=== PATIENT | male | born 1975 | race Caucasian/White ===

== ENCOUNTER → 2017-10-11 | Outpatient (CLI) | payer BC ==
--- NOTE | 2017-10-12 09:13 | XR ---
EXAM TYPE: LUMBAR SPINE X RAY SERIES COMPARISON: NONE HISTORY: Pain TECHNIQUE: 4 views are submitted. FINDINGS: Alignment is anatomic. The pedicles are intact. The transverse processes are intact. There is no s pondylolysis or spondylolisthesis. Schmorl's nodes involving L2, T11 and T12. Multilevel moderate to severe degenerative disc disease and facet arthropathy. There is slight wedging of the T12 vertebral body. IMPRESSION: 1. Multilevel moderate to severe degenerative disc disease with minimal wedging of the T12 vertebral body for which correlation with MRI is recommended..
== END | disposition home or self-care (01) ==
LOC: RADXRYALE 15:36
PROVIDERS: ATTEND Physician Assistant Medical
DX: M51.36 Other intervertebral disc degeneration, lumbar region (principal)
CPT/HCPCS: 72100

== ENCOUNTER → 2020-08-24 | Outpatient (CLI) | payer OTHER ==
--- NOTE | 2020-08-25 03:54 | CT ---
EXAMINATION TYPE: CT abdomen pelvis w con DATE OF EXAM: 08/24/2020 COMPARISON: None HISTORY: RUQ pain CT DLP: 0.6 mGycm Automated exposure control for dose reduction was used. CONTRAST: Performed with IV Contrast, patient injected with 100 mL of Isovue 300. There is oral contrast. There is mild subsegmental atelectasis left lung base. There is no pericardial effusion. Heart size i s normal. Liver and spleen and pancreas appear intact. The bile ducts are not dilated. There is apparent gallbl adder present which is somewhat contracted and contains 3 hypoattenuation material. This could be gal lstones. The stomach is intact. There is no adrenal mass. Kidneys show satisfactory contrast opacification. Th ere is no hydronephrosis. Delayed images show normal renal excretion. The appendix is medial and appe ars normal. Bladder distends smoothly. There is no inguinal hernia. There is no free fluid in the pel vis. There are a few sigmoid diverticula. There is no sign of diverticulitis. There is no ascites or free air. There is no bowel obstruction. Lumbar vertebra have normal alignment. The posterior elements are intact. There is no compression fra cture. The bony pelvis is intact. IMPRESSION: There is minimal sigmoid diverticulosis without diverticulitis. Normal appendix. High attenuation in the gallbladder which could BE a contracted gallbladder filled with stones. No di lated ducts. Gallbladder abnormality could be confirmed with ultrasound if clinically indicated.
== END | disposition home or self-care (01) ==
LOC: RADCTMAIN 17:04
PROVIDERS: ATTEND Family Medicine
DX: K57.30 Diverticulosis of large intestine without perforation or abscess without bleeding (principal); R10.32 Left lower quadrant pain
CPT/HCPCS: 74177; Q9967

== ENCOUNTER 2020-08-26 15:50 | Observation (INO) | payer OTHER ==
[2020-08-26] MEDS ORDERED: SODIUM CHLORIDE 0.9% 1,000 ML IV STA ×2 (16:37)
[2020-08-26] MEDS ORDERED: HYDROmorphone 0.5 MG/0.5 ML SYRINGE IVP STA (16:37)
[2020-08-26] MEDS ORDERED: PANTOPRAZOLE 40 MG/10 ML VIAL IVP STA (16:37)
[2020-08-26] MEDS ORDERED: ONDANSETRON 4 MG/2 ML VIAL IVP STA (16:37)
[2020-08-26 16:58] LABS: Basophils % (A) 0 %; Eosinophils # (A) 0.2 k/uL (0-0.7); Eosinophils % (A) 3 %; HCT 44.6 % (39.0-53.0); Lymphocytes # (A) 1.8 k/uL (1.0-4.8); Lymphocytes % (A) 22 %; MCH 31.2 pg (25.0-35.0); MCHC 33.6 g/dL (31.0-37.0); MCV 92.7 fL (80.0-100.0); Mean Platelet Volume 7.4; Monocytes # (A) 0.4 k/uL (0-1.0); Monocytes % (A) 4 %; Neutrophils # (A) 5.6 k/uL (1.3-7.7); Neutrophils % (A) 68 %; Platelet Count 175 k/uL (150-450); RDW 12.3 % (11.5-15.5); WBC 8.2 k/uL (3.8-10.6)
[2020-08-26 17:06] LABS: ALT 35 U/L (4-49); AST 37 U/L (17-59); African American GFR (CKD) >90 (>60 ml/min/1.73 sqM); Albumin 4.4 g/dL (3.5-5.0); Alkaline Phosphatase 51 U/L (38-126); Amylase 65 U/L (30-110); Anion Gap 6 mmol/L; Blood Urea Nitrogen 19 mg/dL (9-20); Calcium 9.4 mg/dL (8.4-10.2); Carbon Dioxide 25 mmol/L (22-30); Chloride 105 mmol/L (98-107); Glucose 83 mg/dL (74-99); Lipase 87 U/L (23-300); Non-African American GFR(CKD) >90 (>60 ml/min/1.73 sqM); Sodium 136 mmol/L (137-145); Total Bilirubin 0.4 mg/dL (0.2-1.3); Total Protein 7.3 g/dL (6.3-8.2)
[2020-08-26 17:12] LABS: Partial Thromboplastin Time 25.7 sec (22.0-30.0)
--- NOTE | 2020-08-26 17:14 | ED ---
Abdominal Pain HPI - General Chief Complaint: Abdominal Pain Stated Complaint: Abd Pain Time Seen by Provider: 08/26/20 16:18 Source: patient, RN notes reviewed, old records reviewed Mode of arrival: ambulatory Limitations: no limitations - History of Present Illness Initial Comments: Residual male presents to the ER today for evaluation for concerns for right upper quadrant abdominal pain has been intermittent for the past few weeks, specifically worse after eating dinner at night. Patient was seen by PCP and had an outpatient CAT scan he does not know the results. This was done a week ago. Patient denies any fever. He complains of some nausea. Denies any significant change in stools. He does have a history of a VSD repair and a pacemaker. Patient reports he's had hernia surgeries in the past. - Related Data Home Medications Medication Instructions Recorded Confirmed Adk 1 tab PO DAILY 08/26/20 08/26/20 Anastrozole [Arimidex] 1 mg PO MOTH 08/26/20 08/26/20 Dim 1 tab PO DAILY 08/26/20 08/26/20 HYDROcodone/APAP 10-325MG [[place] 1 tab PO Q8H PRN 08/26/20 08/26/20 10-325] traMADol HCL 50 mg PO BID PRN 08/26/20 08/26/20 Allergies Allergy/AdvReac Type Severity Reaction Status Date / Time No Known Allergies Allergy Verified 08/26/20 17:29 Review of Systems ROS Statement: Those systems with pertinent positive or pertinent negative responses have been documented in the HPI. ROS Other: All systems not noted in ROS Statement are negative. Past Medical History Past Medical History: Coronary Artery Disease (CAD) History of Any Multi-Drug Resistant Organisms: None Reported Past Surgical History: Pacemaker Additional Past Surgical History / Comment(s): VST repair Past Psychological History: No Psychological Hx Reported Smoking Status: Never smoker Past Alcohol Use History: None Reported Past Drug Use History: None Reported General Exam - General Exam Comments Initial Comments: Is a 44-year-old male. No distress. Limitations: no limitations Head exam: Present: atraumatic, normocephalic, normal inspection Eye exam: Present: normal appearance, PERRL, EOMI. Absent: scleral icterus, conjunctival injection, periorbital swelling ENT exam: Present: normal exam, mucous membranes moist Neck exam: Present: normal inspection. Absent: tenderness, meningismus, lymphadenopathy Respiratory exam: Present: normal lung sounds bilaterally. Absent: respiratory distress, wheezes, rales, rhonchi, stridor Cardiovascular Exam: Present: regular rate, normal rhythm, normal heart sounds. Absent: systolic murmur, diastolic murmur, rubs, gallop, clicks GI/Abdominal exam: Present: soft, tenderness ( right Upper quadrant tenderness), normal bowel sounds. Absent: distended, guarding, rebound, rigid Extremities exam: Present: normal inspection, full ROM, normal capillary refill. Absent: tenderness, pedal edema, joint swelling, calf tenderness Back exam: Present: normal inspection Neurological exam: Present: alert, oriented X3, CN II-XII intact Psychiatric exam: Present: normal affect, normal mood Skin exam: Present: warm, dry, intact, normal color. Absent: rash Course Vital Signs 08/26/20 08/26/20 08/26/20 16:01 16:26 18:01 Temperature 98.9 F Pulse Rate 73 68 Respiratory 20 16 18 Rate Blood Pressure 137/83 136/72 O2 Sat by Pulse 99 97 Oximetry Medical Decision Making - Medical Decision Making 44-year-old male presents emergency room today with intermittent right upper quadrant abdominal pain for the past few weeks. He had an outpatient CAT scan which showed contracted gallbladder with multiple stones. Patient at this time was given pain medication and nausea medication. Labwork was reviewed and unremarkable. Does have right upper quadrant tenderness. Ultrasound shows thickened gallbladder wall concern for cholecystitis. 4 Patient of these results. Discussed the case with Dr. Harris discussed case with Dr. Pereyra who recommended a clear liquid diet and antibiotics for scheduled surgery likely tomorrow. - Lab Data Result diagrams: 08/26/20 16:47 08/26/20 16:47 Lab Results 08/26/20 08/26/20 08/26/20 Range/Units 16:47 16:47 16:47 WBC 8.2 (3.8-10.6) k/uL RBC 4.80 (4.30-5.90) m/uL Hgb 15.0 (13.0-17.5) gm/dL Hct 44.6 (39.0-53.0) % MCV 92.7 (80.0-100.0) fL MCH 31.2 (25.0-35.0) pg MCHC 33.6 (31.0-37.0) g/dL RDW 12.3 (11.5-15.5) % Plt Count 175 (150-450) k/uL MPV 7.4 Neutrophils % 68 % Lymphocytes % 22 % Monocytes % 4 % Eosinophils % 3 % Basophils % 0 % Neutrophils # 5.6 (1.3-7.7) k/uL Lymphocytes # 1.8 (1.0-4.8) k/uL Monocytes # 0.4 (0-1.0) k/uL Eosinophils # 0.2 (0-0.7) k/uL Basophils # 0.0 (0-0.2) k/uL PT 10.0 (9.0-12.0) sec INR 1.0 (<1.2) APTT 25.7 (22.0-30.0) sec Sodium 136 L (137-145) mmol/L Potassium 4.5 (3.5-5.1) mmol/L Chloride 105 (98-107) mmol/L Carbon Dioxide 25 (22-30) mmol/L Anion Gap 6 mmol/L BUN 19 (9-20) mg/dL Creatinine 0.89 (0.66-1.25) mg/dL Est GFR (CKD-EPI)AfAm >90 (>60 ml/min/1.73 sqM) Est GFR (CKD-EPI)NonAf >90 (>60 ml/min/1.73 sqM) Glucose 83 (74-99) mg/dL Calcium 9.4 (8.4-10.2) mg/dL Total Bilirubin 0.4 (0.2-1.3) mg/dL AST 37 (17-59) U/L ALT 35 (4-49) U/L Alkaline Phosphatase 51 (38-126) U/L Total Protein 7.3 (6.3-8.2) g/dL Albumin 4.4 (3.5-5.0) g/dL Amylase 65 (30-110) U/L Lipase 87 (23-300) U/L 08/26/20 17:22 EKG performed at 1646 shows electronic pacemaker ventricular rate of 63 bpm. Verbal 136 ms. QRS duration is 09/05/2001 milliseconds. QT QTc is 490/501 ms. - Radiology Data Radiology results: report reviewed Ultrasound shows gallbladder wall thickening suggestive of cholecystitis. There probably gallstones. No ascites. Disposition Clinical Impression: Cholecystitis Disposition: ADMITTED IP TO THIS HOSP Condition: Good Is patient prescribed a controlled substance at d/c from ED?: No Referrals: Michael Dennison DO [Primary Care Provider] - 1-2 days Time of Disposition: 19:02
[2020-08-26 17:18] LABS: Potassium 4.5 mmol/L (3.5-5.1)
--- NOTE | 2020-08-26 18:41 | US ---
EXAMINATION TYPE: US gallbladder DATE OF EXAM: 08/26/2020 COMPARISON: CT CLINICAL HISTORY: ruq pain. RUQ pain x 3 weeks. EXAM MEASUREMENTS: Liver Length: 15.1 cm Gallbladder Wall: 0.59 cm CBD: Not seen Right Kidney: 11.9 x 5.4 x 6.4 cm Very limited due to gas and patient body habitus. Pancreas: Obscured by gas. Liver: Limited. All images taken intercostally. Measurement is limited. Gallbladder: Very limited visibility. There does appear to be internal echoes within the gallbladder. Wall appears thickened. Evidence for sonographic Guzman's sign: No CBD: Not seen Right Kidney: No hydronephrosis or masses seen. Cortex appears thin. IMPRESSION: Gallbladder wall thickening suggestive of cholecystitis. There are probably gallstones. No ascites.
[2020-08-26] MEDS ORDERED: PIPERACILLIN-TAZOBACTAM 3.375 GM in SODIUM CHLORIDE 0.9% 100 ML IVPB STA (19:01)
[2020-08-26] MEDS ORDERED: NALOXONE 0.4 MG/ML 1 ML VIAL IV PRN (19:02)
[2020-08-26] MEDS ORDERED: HYDROmorphone 0.5 MG/0.5 ML SYRINGE IVP PRN (19:02)
[2020-08-26] MEDS ORDERED: IBUPROFEN 400 MG TAB PO PRN (19:02)
[2020-08-26] MEDS: SODIUM CHLORIDE 0.9% 1,000 ML IV SCH (21:56)
[2020-08-26] MEDS: MORPHINE SULFATE 4 MG/ML SYRINGE IV PRN (22:30)
[2020-08-27] LABS: Appearance,Urine Clear (Clear); Bilirubin,Urine Negative (Negative); Blood,Urine Negative (Negative); Color,Urine Yellow; Glucose,Urine (UA) Negative (Negative); Ketones,Urine Negative (Negative); Leukocyte Esterase,Urine Negative (Negative); Nitrite,Urine Negative (Negative); PH, Urine 5.5 (5.0-8.0); Protein,Urine Negative (Negative); Specific Gravity,Urine 1.024 (1.001-1.035); Urobilinogen,Urine <2.0 mg/dL (<2.0)
[2020-08-27] MEDS: MORPHINE SULFATE 4 MG/ML SYRINGE IV PRN (03:56)
[2020-08-27] MEDS: PIPERACILLIN-TAZOBACTAM 3.375 GM in SODIUM CHLORIDE 0.9% 100 ML IVPB SCH ×2 (03:57→13:09)
[2020-08-27 04:58] VITALS: RESP 16
[2020-08-27] MEDS: SODIUM CHLORIDE 0.9% 1,000 ML IV SCH ×2 (05:57→14:16)
[2020-08-27] MEDS ORDERED: PANTOPRAZOLE 40 MG/10 ML VIAL IV SCH (09:00)
--- NOTE | 2020-08-27 13:24 | P.GSHP ---
History of Present Illness H&P Date: 08/27/20 CHIEF COMPLAINT: Symptomatic gallstones HISTORY OF PRESENT ILLNESS: The patient is a 44-year-old male with pre-existing heart disease including gallstones. He has his gallstones since 2002 at least 17 years. He reports not having any symptoms with his gallstones until recently. He reports moderate right upper quadrant abdominal pain. He continues to eat high-fat foods including his cheese. His last meal includes breakfast burrito with eggs, cheese followed by an onset abdominal pain. He has pre-existing heart disease for ventral septal defect repair. He has a pacemaker. He last saw his tank pumper within the last 1-2 months. PAST MEDICAL HISTORY: See list and reviewed PAST SURGICAL HISTORY: See list and reviewed MEDICATIONS: See list and reviewed ALLERGIES: See list and reviewed SOCIAL HISTORY: See list and reviewed FAMILY HISTORY: See list and reviewed REVIEW OF ORGAN SYSTEMS: CONSTITUTIONAL: No fevers or chills. He is 60+ pounds overweight. EYES: Denies any trouble with vision. No glasses. HEENT: No difficulties with hearing. No nosebleeds. No difficulty swallowing. RESPIRATORY: Denies pneumonia. Denies any troubles with breathing or dyspnea on exertion. CARDIOVASCULAR: Past ventral septal defect. Seen tank pumper in last 2 months. GASTROINTESTINAL: Has fatty food intolerance. Has change in bowel habits and gas bloat. GENITOURINARY: Denies any blood in urine or increased urinary frequency. NEUROLOGICAL: Denies any numbness or tingling along the distal extremities. No seizure disorders or headaches. MUSCULOSKELETAL: Has back pain, stiffness or joint arthritis. SKIN: No current skin cancer. No rash. PSYCHIATRIC: Denies current depression or suicidal thoughts. ENDOCRINE: Denies current thyroid disorders. Denies any blood sugar glucose intolerance. HEME/LYMPHATIC: Denies any lumps and bumps around the neck. No recent deep veno us thrombosis. ALLERGY/IMMUNOLOGY: No immunoglobulin therapy. No immune deficiencies. BREAST: Denies current breast lumps, pain or nipple discharge. PHYSICAL EXAM: VITALS: Reviewed CONSTITUTIONAL: Well developed and in no acute distress. EYES: Conjuctivae without sclera icterus. Extraocular movements grossly intact. HEAD, EARS, NOSE, THROAT: Moist buccal mucosa. Head is atraumatic, normoceph alic. Hears conversational speech. No nasal drainage. NECK: Supple. No JV distention. No thyroidomegaly. RESPIRATORY: Non-labored respirations and equal bilateral excursions. No gross wheezes. CARDIOVASCULAR: Regular rate and rhythm. Extremities without moderate edema. Palpable 2+ radial pulses. ABDOMEN: Soft. Protuberant. No peritonitis. Mild tenderness right upper quadrant. LYMPH: No neck lymphadenopathy. No axillary lymphadenopathy. MUSCULOSKELETAL: Range of motion bilateral upper extremities within normal limits. Nail and fingers with good capillary refill. SKIN: Warm and well perfused with good skin turgor. NEUROLOGIC: Cranial nerves II through XII grossly intact. Sensation upper and extremities intact. No focal or lateralizing signs. PSYCH: Appropriate affect. Alert and oriented to person, place and time. Displays appropriate insight. CLINCAL LABS: Reviewed. WBC normal. LFTs normal. RADIOLOGY: Report reviewed with presence of gallstones. EKG: Review demonstrates presence of a pacemaker. ASSESSMENT: 1. Symptomatic gallstones 2. Ventral septal defect PLAN: 1. Education for low-fat diet this reviewed including for the holidays. Avoiding cheese including Graves' disease and high-fat foods were described in detail. 2. With IV antibiotics, bowel pain has also improved. 3. Patient recently seen by tank pumper which per patient has been unchanged. 4. Stable for discharge as he is tolerating liquid diet and pain is improved. Past Medical History Past Medical History: Coronary Artery Disease (CAD) History of Any Multi-Drug Resistant Organisms: None Reported Past Surgical History: Pacemaker Additional Past Surgical History / Comment(s): Ventricular Septal Defect repair with patch 2002, pace maker Past Anesthesia/Blood Transfusion Reactions: No Reported Reaction Type of Cardiac Device: Permanent Pacemaker Device Placement Date:: 2002 Past Psychological History: No Psychological Hx Reported Smoking Status: Never smoker Past Alcohol Use History: None Reported Past Drug Use History: None Reported Medications and Allergies Home Medications Medication Instructions Recorded Confirmed Type Adk 1 tab PO DAILY 08/26/20 08/26/20 History Anastrozole [Arimidex] 1 mg PO MOTH 08/26/20 08/26/20 History Dim 1 tab PO DAILY 08/26/20 08/26/20 History HYDROcodone/APAP 10-325MG [[place] 1 tab PO Q8H PRN 08/26/20 08/26/20 History 10-325] traMADol HCL 50 mg PO BID PRN 08/26/20 08/26/20 History Amoxic-Pot Clav 875-125Mg 1 tab PO BID #10 tab 08/27/20 Rx [Augmentin 875-125] Allergies Allergy/AdvReac Type Severity Reaction Status Date / Time No Known Allergies Allergy Verified 08/26/20 17:29 Surgical - Exam Vital Signs Temp Pulse Resp BP Pulse Ox 98.9 F 73 20 137/83 99 08/26/20 16:01 08/26/20 16:01 08/26/20 16:01 08/26/20 16:01 08/26/20 16:01 Results - Labs 08/26/20 16:47 08/26/20 16:47 Abnormal Lab Results - Last 24 Hours (Table) 08/26/20 Range/Units 16:47 Sodium 136 L (137-145) mmol/L Diabetes panel 08/26/20 Range/Units 16:47 Sodium 136 L (137-145) mmol/L Potassium 4.5 (3.5-5.1) mmol/L Chloride 105 (98-107) mmol/L Carbon Dioxide 25 (22-30) mmol/L BUN 19 (9-20) mg/dL Creatinine 0.89 (0.66-1.25) mg/dL Glucose 83 (74-99) mg/dL Calcium 9.4 (8.4-10.2) mg/dL AST 37 (17-59) U/L ALT 35 (4-49) U/L Alkaline Phosphatase 51 (38-126) U/L Total Protein 7.3 (6.3-8.2) g/dL Albumin 4.4 (3.5-5.0) g/dL Calcium panel 08/26/20 Range/Units 16:47 Calcium 9.4 (8.4-10.2) mg/dL Albumin 4.4 (3.5-5.0) g/dL Pituitary panel 08/26/20 Range/Units 16:47 Sodium 136 L (137-145) mmol/L Potassium 4.5 (3.5-5.1) mmol/L Chloride 105 (98-107) mmol/L Carbon Dioxide 25 (22-30) mmol/L BUN 19 (9-20) mg/dL Creatinine 0.89 (0.66-1.25) mg/dL Glucose 83 (74-99) mg/dL Calcium 9.4 (8.4-10.2) mg/dL Adrenal panel 08/26/20 Range/Units 16:47 Sodium 136 L (137-145) mmol/L Potassium 4.5 (3.5-5.1) mmol/L Chloride 105 (98-107) mmol/L Carbon Dioxide 25 (22-30) mmol/L BUN 19 (9-20) mg/dL Creatinine 0.89 (0.66-1.25) mg/dL Glucose 83 (74-99) mg/dL Calcium 9.4 (8.4-10.2) mg/dL Total Bilirubin 0.4 (0.2-1.3) mg/dL AST 37 (17-59) U/L ALT 35 (4-49) U/L Alkaline Phosphatase 51 (38-126) U/L Total Protein 7.3 (6.3-8.2) g/dL Albumin 4.4 (3.5-5.0) g/dL
--- NOTE | 2020-08-27 13:25 | P.DS ---
Providers Date of admission: 08/26/20 18:50 Expected date of discharge: 08/27/20 Attending physician: Martha Gray Consults: 08/27/20 13:05 Consult Physician Routine Consulting Provider: Sivakumar Jones Consult Reason/Comments: clearance for surgery Do you want consulting provider notified?: Yes Primary care physician: Michael Dennison - Discharge Diagnosis(es) (1) Gallstones Current Visit: Yes Status: Acute (2) Right upper quadrant abdominal pain Current Visit: Yes Status: Acute (3) Cardiac septal defect Current Visit: Yes Status: Acute (4) Morbid obesity due to excess calories Current Visit: Yes Status: Acute (5) BMI over 35 Current Visit: Yes Status: Acute Hospital Course: CHIEF COMPLAINT: Symptomatic gallstones HISTORY OF PRESENT ILLNESS: The patient is a 44-year-old male with pre-existing heart disease including gallstones. He has his gallstones since 2002 at least 17 years. He reports not having any symptoms with his gallstones until recently. He reports moderate right upper quadrant abdominal pain. He continues to eat high-fat foods including his cheese. His last meal includes breakfast burrito with eggs, cheese followed by an onset abdominal pain. He has pre-existing heart disease for ventral septal defect repair. He has a pacemaker. He last saw his web developer programmer within the last 1-2 months. PAST MEDICAL HISTORY: See list and reviewed PAST SURGICAL HISTORY: See list and reviewed MEDICATIONS: See list and reviewed ALLERGIES: See list and reviewed SOCIAL HISTORY: See list and reviewed FAMILY HISTORY: See list and reviewed REVIEW OF ORGAN SYSTEMS: CONSTITUTIONAL: No fevers or chills. He is 60+ pounds overweight. EYES: Denies any trouble with vision. No glasses. HEENT: No difficulties with hearing. No nosebleeds. No difficulty swallowing. RESPIRATORY: Denies pneumonia. Denies any troubles with breathing or dyspnea on exertion. CARDIOVASCULAR: Past ventral septal defect. Seen web developer programmer in last 2 months. GASTROINTESTINAL: Has fatty food intolerance. Has change in bowel habits and gas bloat. GENITOURINARY: Denies any blood in urine or increased urinary frequency. NEUROLOGICAL: Denies any numbness or tingling along the distal extremities. No seizure disorders or headaches. MUSCULOSKELETAL: Has back pain, stiffness or joint arthritis. SKIN: No current skin cancer. No rash. PSYCHIATRIC: Denies current depression or suicidal thoughts. ENDOCRINE: Denies current thyroid disorders. Denies any blood sugar glucose intolerance. HEME/LYMPHATIC: Denies any lumps and bumps around the neck. No recent deep venous thrombosis. ALLERGY/IMMUNOLOGY: No immunoglobulin therapy. No immune deficiencies. BREAST: Denies current breast lumps, pain or nipple discharge. PHYSICAL EXAM: VITALS: Reviewed CONSTITUTIONAL: Well developed and in no acute distress. EYES: Conjuctivae without sclera icterus. Extraocular movements grossly intact. HEAD, EARS, NOSE, THROAT: Moist buccal mucosa. Head is atraumatic, normocephalic. Hears conversational speech. No nasal drainage. NECK: Supple. No JV distention. No thyroidomegaly. RESPIRATORY: Non-labored respirations and equal bilateral excursions. No gross wheezes. CARDIOVASCULAR: Regular rate and rhythm. Extremities without moderate edema. Palpable 2+ radial pulses. ABDOMEN: Soft. Protuberant. No peritonitis. Mild tenderness right upper quadrant. LYMPH: No neck lymphadenopathy. No axillary lymphadenopathy. MUSCULOSKELETAL: Range of motion bilateral upper extremities within normal limits. Nail and fingers with good capillary refill. SKIN: Warm and well perfused with good skin turgor. NEUROLOGIC: Cranial nerves II through XII grossly intact. Sensation upper and extremities intact. No focal or lateralizing signs. PSYCH: Appropriate affect. Alert and oriented to person, place and time. Displays appropriate insight. CLINCAL LABS: Reviewed. WBC normal. LFTs normal. RADIOLOGY: Report reviewed with presence of gallstones. EKG: Review demonstrates presence of a pacemaker. ASSESSMENT: 1. Symptomatic gallstones 2. Ventral septal defect PLAN: 1. Education for low-fat diet this reviewed including for the holidays. Avoiding cheese including Graves' disease and high-fat foods were described in detail. 2. With IV antibiotics, bowel pain has also improved. 3. Patient recently seen by web developer programmer which per patient has been unchanged. 4. Stable for discharge as he is tolerating liquid diet and pain is improved. Patient Condition at Discharge: Stable Plan - Discharge Summary Discharge Rx Participant: No New Discharge Prescriptions: New Amoxic-Pot Clav 875-125Mg [Augmentin 875-125] 1 tab PO BID #10 tab Continue traMADol HCL 50 mg PO BID PRN PRN Reason: Pain Dim 1 tab PO DAILY Anastrozole [Arimidex] 1 mg PO MOTH Adk 1 tab PO DAILY HYDROcodone/APAP 10-325MG [[place] 10-325] 1 tab PO Q8H PRN PRN Reason: Pain Discharge Medication List Adk 1 tab PO DAILY 08/26/20 [History] Anastrozole [Arimidex] 1 mg PO MOTH 08/26/20 [History] Dim 1 tab PO DAILY 08/26/20 [History] HYDROcodone/APAP 10-325MG [[place] 10-325] 1 tab PO Q8H PRN 08/26/20 [History] traMADol HCL 50 mg PO BID PRN 08/26/20 [History] Amoxic-Pot Clav 875-125Mg [Augmentin 875-125] 1 tab PO BID #10 tab 08/27/20 [Rx] Follow up Appointment(s)/Referral(s): Martha Gray MD [STAFF PHYSICIAN] - 09/01/20 Michael Dennison DO [Primary Care Provider] - 1-2 days Patient Instructions/Handouts: Gallstones (DC), Low Fat Diet (DC) Activity/Diet/Wound Care/Special Instructions: Avoid high fat food. Please review low-fat diet menu. Follow-up in the office next week. Discharge Disposition: HOME SELF-CARE
[2020-08-27 14:47] VITALS: BP 134/78; PULSE 61; TEMP 98.5
[2020-08-30 09:37] LABS: Glucose,Whole Blood 91 mg/dL (75-99)
[2020-08-30 09:37] LABS: Glucose,Whole Blood 93 mg/dL (75-99)
== END 2020-08-27 15:08 | disposition home or self-care (01) ==
LOC: EC 15:50 → 4SSUR 18:50
PROVIDERS: ADMIT Surgery Plastic and Reconstructive Surgery; ATTEND Surgery Plastic and Reconstructive Surgery
DX: K80.10 Calculus of gallbladder with chronic cholecystitis without obstruction (principal); E66.01 Morbid (severe) obesity due to excess calories; Z68.35 Body mass index [BMI] 35.0-35.9, adult; I51.9 Heart disease, unspecified; I25.10 Atherosclerotic heart disease of native coronary artery without angina pectoris; Z98.890 Other specified postprocedural states; Z95.0 Presence of cardiac pacemaker; Z79.811 Long term (current) use of aromatase inhibitors; Z79.899 Other long term (current) drug therapy
CPT/HCPCS: 96376 ×2; 96366 ×2; 96375 ×2; 96361; 96365; 99285; 36415; 93005; 80053; 82150; 83690; 85025; 85610; 85730; 81003; 87040; 76705; G0378 ×2; J2543 ×2; J2270 ×2; J2405; C9113 ×2; J1170

== ENCOUNTER → 2020-09-07 | Outpatient (CLI) | payer BC ==
--- NOTE | 2020-09-07 11:41 | XR ---
EXAMINATION TYPE: XR ankle complete RT DATE OF EXAM: 09/07/2020 COMPARISON: NONE HISTORY: Pain FINDINGS: Three views of the ankle demonstrate the ankle mortise to be intact and symmetric. The joint spaces are preserved. The osseous structures are intact. There is a plantar calcaneal spur. There also is a spur along the medial malleolus. Prominence of the medial talar eminence appears chronic may be con genital. IMPRESSION: 1. No definite acute fracture or dislocation, if symptoms persist follow-up study in 7 to 10 days wou ld be suggested.
== END | disposition home or self-care (01) ==
LOC: RADXRYALE 11:04
PROVIDERS: ATTEND Family Medicine
DX: M25.571 Pain in right ankle and joints of right foot (principal)

== ENCOUNTER 2020-09-25 06:22 | Day surgery (SDC) | payer BC, OTHER ==
[2020-09-23 11:21] VITALS: BMI 35.9
--- NOTE | 2020-09-25 05:15 | P.GSHP ---
History of Present Illness H&P Date: 09/25/20 CHIEF COMPLAINT: Cholecystitis HISTORY OF PRESENT ILLNESS: The patient is a 44-year-old male who presents with history of epigastric including right upper quadrant abdominal pain. He underwent diagnostic studies for the gallbladder. Separately his clinical picture was consistent with cholecystitis. Now he presents for surgical intervention. PAST MEDICAL HISTORY: Please see list PAST SURGICAL HISTORY: Please see list MEDICATIONS: Please see list ALLERGIES: Please see list SOCIAL HISTORY: Please see list FAMILY HISTORY: Please see list REVIEW OF ORGAN SYSTEMS: CONSTITUTIONAL: No reports of fevers or chills. HEENT: Denies any troubles with the vision or hearing. PHYSICAL EXAM: VITAL SIGNS: Afebrile vital signs stable GENERAL: Well-developed pleasant male in no acute distress. HEENT: No scleral icterus. Extraocular movements grossly intact. Moist buccal mucosa. NECK: Supple without lymphadenopathy. CHEST: Unlabored respirations. Equal bilateral excursions. CARDIOVASCULAR: Regular rate regular rhythm rhythm. Distal 2+ pulses. ABDOMEN: Soft, nondistended. Tender along the epigastrium and right upper quadrant. MUSCULOSKELETAL: No clubbing, cyanosis, or edema. NEURO : No focal or lateralizing signs. Cranial nerves II-12 within normal limits. PSYCH: Alert and oriented to person, place and time. SKIN: Well perfused. Good skin turgor. ASSESSMENT: 1. Epigastric and right upper quadrant abdominal pain 2. Chronic cholecystitis PLAN: 1. Will need a robotic cholecystectomy possible open. Benefits and risks were described. 2. Heparin for DVT prophylaxis 5000 units. 3. Antibiotic prophylaxis. Past Medical History Past Medical History: Coronary Artery Disease (CAD) Additional Past Medical History / Comment(s): ventral septal defect. heart mumur History of Any Multi-Drug Resistant Organisms: None Reported Past Surgical History: Heart Catheterization, Pacemaker, Tonsillectomy Additional Past Surgical History / Comment(s): Ventricular Septal Defect repair with patch 2002, pace maker Past Anesthesia/Blood Transfusion Reactions: No Reported Reaction Type of Cardiac Device: Permanent Pacemaker Device Placement Date:: 2002 Smoking Status: Never smoker - Past Family History Mother Family Medical History: Cancer Additional Family Medical History / Comment(s): pancreatic cancer Medications and Allergies Home Medications Medication Instructions Recorded Confirmed Type Adk 1 tab PO DAILY 08/26/20 09/23/20 History Anastrozole [Arimidex] 1 mg PO MOTH 08/26/20 09/23/20 History Dim 1 tab PO DAILY 08/26/20 09/23/20 History HYDROcodone/APAP 10-325MG [[place] 1 tab PO Q8H PRN 08/26/20 09/23/20 History 10-325] traMADol HCL 50 mg PO BID PRN 08/26/20 09/23/20 History Allergies Allergy/AdvReac Type Severity Reaction Status Date / Time adhesive tape Allergy Rash/Hives Verified 09/23/20 11:12
[~2020-09-25 06:22] MED LIST: ACETAMINOPHEN TAB 500 MG TAB PO STA; DEXAMETHASONE SOD PHOSPHATE 4 MG/ML 1 ML VIAL IV ONE; GABAPENTIN 300 MG CAP PO STA; HEPARIN SODIUM,PORCINE 5,000 UNIT/ML 1 ML VIAL SQ PRN; INDOCYANINE GREEN 25 MG VIAL IV ONE; LACTATED RINGERS 1,000 ML IV SCH; LIDOCAINE 1% (10MG/ML) FOR IV START INTRADERMA PRN; MELOXICAM 7.5 MG TAB PO ONE; MIDAZOLAM 2 MG/2 ML VIAL IV PRN; ONDANSETRON 4 MG/2 ML VIAL IVP ONE
[2020-09-25] MEDS ORDERED: HYDROmorphone 0.5 MG/0.5 ML SYRINGE IVP PRN (07:00)
[2020-09-25] MEDS ORDERED: HYDROmorphone (PF) 1 MG/ML ONE (07:36)
[2020-09-25] MEDS ORDERED: PROPOFOL 10 MG/ML 20 ML VIAL IV ONE (07:36)
[2020-09-25] MEDS ORDERED: LIDOCAINE 1% INJ 10MG/ML (20 ML MDV) ONE (07:36)
[2020-09-25] MEDS ORDERED: INDOCYANINE GREEN 25 MG VIAL IV ONE (07:36)
[2020-09-25] MEDS ORDERED: SUCCINYLCHOLINE CHLORIDE 100 MG/5 ML SYR IV ONE (07:36)
[2020-09-25] MEDS ORDERED: ROCURONIUM 10 MG/ML (10 ML VIAL) IV ONE (07:36)
[2020-09-25] MEDS ORDERED: MIDAZOLAM 2 MG/2 ML VIAL ONE (07:36)
[2020-09-25] MEDS ORDERED: GLYCOPYRROLATE 0.2 MG/ML 2 ML VIAL ONE (07:36)
[2020-09-25] MEDS ORDERED: fentaNYL (PF) 50 MCG/ML 2 ML AMP ONE (07:36)
[2020-09-25] MEDS ORDERED: NEOSTIGMINE 1 MG/ML 10 ML VIAL ONE (07:36)
[2020-09-25] MEDS ORDERED: LIDOCAINE 1%-EPI 1:100,000 20 ML VIAL SQ ONE (08:10)
[2020-09-25] MEDS ORDERED: KETOROLAC 15 MG/ML 1 ML VIAL IVP ONE (09:11)
--- NOTE | 2020-09-25 09:15 | P.OP ---
Date of Procedure: 09/25/20 Description of Procedure: SURGEON: MARTHA GRAY MD PREOPERATIVE DIAGNOSES: 1. Symptomatic gallstones 2. Right upper quadrant abdominal pain 3. Ventral septal defect 4. Chronic pain syndrome POSTOPERATIVE DIAGNOSES: 1. Symptomatic gallstones 2. Right upper quadrant abdominal pain 3. Ventral septal defect 4. Chronic pain syndrome 5. Peritoneal adhesions, right upper quadrant OPERATION: 1. Robotic-assisted da Kory Xi laparoscopic lysis of adhesions 2. Robotic-assisted da Kory Xi laparoscopic cholecystectomy, multiport with FIREFLY ESTIMATED BLOOD LOSS: 20 mL. SPECIMENS REMOVED: Gallbladder. COMPLICATIONS: None. OPERATIVE FINDINGS: 1. Moderate scarring over entire gallbladder with peritoneal adhesions, pericholecystic with features of chronic cholecystitis INDICATIONS: The patient is a 44-year-old female who presents with symptomatic gallstones. Robotic assisted laparoscopic approach was described. Benefits and risks of the procedure including but not limited to bleeding, infection, injury to the biliary tree was described. Informed consent was obtained. DESCRIPTION OF PROCEDURE: Patient was brought to the operating room, placed in supine position. After general induction, the abdomen had been prepped and draped in standard sterile fashion. The robotic da Kory XI system was primed. After a timeout protocol was performed, the patient had been prepped and draped in standard sterile fashion. The patient was injected with indocyanine green. A 5 mm 0 degrees laparoscopic trocar entry was performed along the left upper quadrant. The abdomen insufflated to 15 mmHg pressure which was tolerated well. Diagnostic laparoscopy demonstrated no injury to bowel viscera or mesentery. The liver surface was unremarkable. Next, two 8 mm robotic ports were placed along the right upper abdomen. The camera 8-mm port was maintained along the epigastrium. Another 8 mm port was placed along the left upper abdominal wall after exchanging the 5 mm port. Please note that the ports were placed at least 10 to 15 cm away from the target anatomy of the gallbladder. The robot was docked along the left lateral abdomen. The patient was repositioned in reverse Trendelenburg position. Using a grasper for arm 3, a grasper for arm 4, including hook cautery for arm 1, the robotic system was docked and primed as described. Instruments were interchanged by the mobile sales assistant including hook cautery, Bovie cautery and clip appliers. I had sat at the console. The gallbladder was scarred with peritoneal adhesions. Lysis of adhesions was performed to free the gallbladder from the surrounding tissues. Next attention was brought to the infundibulum and cystic structures. The infundibulum and cystic duct were dissected free from surrounding tissues. The cystic duct was isolated. FIREFLY was used to identify the cystic artery and cystic structures. A critical view of safety was obtained. Large PLASTIC clips were used throughout the entire case. Using a clip electrical line worker, 2 clips were placed at the junction of the infundibulum and cystic duct. The rest of the gallbladder including cystic duct were divided using vessel sealer. Electro-Bovie cautery Including vessel sealer were used to remove the gallbladder from the hepatic fossa. Hemostasis was checked and found to be adequate. The robot was undocked. I re-scrubbed into the case. Using a 10 mm Endo Catch bag via the left upper quadrant incision, the specimen was removed from the abdominal cavity. All pneumoperitoneum instruments were evacuated from the abdominal cavity. The incisions were reapproximated using 4-0 Monocryl in an interrupted subcuticular fashion. Fascial defect at the left upper quadrant was oversewn using 0 Vicryl and [place]. Please note along the trocar sites, local anesthetic was placed as a field block prior to insertion of all instruments. Liquid glue was applied to the skin. At the end of the procedure needle, sponge, and instrument count had been verified correct by the layout technician. The patient was transferred to postanesthesia care unit in stable condition. Intraoperative films were shared with the patient's family. Plan - Discharge Summary Discharge Rx Participant: No New Discharge Prescriptions: New Ibuprofen [Motrin] 600 mg PO Q8HR PRN #30 tab PRN Reason: pain Acetaminophen Tab [Tylenol Tab] 1,000 mg PO Q6HR PRN #30 tablet PRN Reason: Pain Continue traMADol HCL 50 mg PO BID PRN PRN Reason: Pain Dim 1 tab PO DAILY Anastrozole [Arimidex] 1 mg PO MOTH Adk 1 tab PO DAILY HYDROcodone/APAP 10-325MG [[place] 10-325] 1 tab PO Q8H PRN PRN Reason: Pain Discharge Medication List Adk 1 tab PO DAILY 08/26/20 [History] Anastrozole [Arimidex] 1 mg PO MOTH 08/26/20 [History] Dim 1 tab PO DAILY 08/26/20 [History] HYDROcodone/APAP 10-325MG [[place] 10-325] 1 tab PO Q8H PRN 08/26/20 [History] traMADol HCL 50 mg PO BID PRN 08/26/20 [History] Acetaminophen Tab [Tylenol Tab] 1,000 mg PO Q6HR PRN #30 tablet 09/25/20 [Rx] Ibuprofen [Motrin] 600 mg PO Q8HR PRN #30 tab 09/25/20 [Rx] Follow up Appointment(s)/Referral(s): Martha Gray MD [STAFF PHYSICIAN] - 09/29/20 Patient Instructions/Handouts: *Sur[facility] - Managing Your Pain After Surgery Without Opioids, Laparoscopic Cholecystectomy (DC), Low Fat Diet (DC) Activity/Diet/Wound Care/Special Instructions: No lifting over 10 pounds in 2 weeks until Oct 09. May shower. No bath tub soaks for two weeks until Oct 09 Diet as tolerated. No driving while on narcotics. Use Tylenol and ibuprofen or Aleve scheduled for the next 24-48 hours for best pain relief. Use ice along incisions for the today to prevent swelling. For today, avoid high fat foods Discharge Disposition: HOME SELF-CARE
[2020-09-25 09:19] VITALS: TEMP 97
[2020-09-25 10:06] VITALS: PULSE 60
[2020-09-25 10:29] VITALS: RESP 20
[2020-09-25 11:10] VITALS: BP 122/70
== END 2020-09-25 10:50 | disposition home or self-care (01) ==
LOC: OR 06:22
PROVIDERS: ATTEND Surgery Plastic and Reconstructive Surgery
DX: K80.10 Calculus of gallbladder with chronic cholecystitis without obstruction (principal); G89.4 Chronic pain syndrome; K66.0 Peritoneal adhesions (postprocedural) (postinfection); I25.10 Atherosclerotic heart disease of native coronary artery without angina pectoris; R01.1 Cardiac murmur, unspecified; Z95.0 Presence of cardiac pacemaker; Z90.89 Acquired absence of other organs; Z80.0 Family history of malignant neoplasm of digestive organs; E66.01 Morbid (severe) obesity due to excess calories; Z68.35 Body mass index [BMI] 35.0-35.9, adult; Z95.1 Presence of aortocoronary bypass graft; Z79.811 Long term (current) use of aromatase inhibitors; Z79.891 Long term (current) use of opiate analgesic; Z79.899 Other long term (current) drug therapy; Z91.09 Other allergy status, other than to drugs and biological substances
CPT/HCPCS: 47562; S2900; 88304

== ENCOUNTER → 2023-07-24 | Outpatient (CLI) | payer OTHER ==
--- NOTE | 2023-07-24 12:42 | XR ---
EXAMINATION TYPE: XR abdomen 2V DATE OF EXAM: 07/24/2023 COMPARISON: NONE HISTORY: Pain TECHNIQUE: Single supine KUB image of the abdomen is obtained FINDINGS: Small bowel demonstrates no evidence for dilatation or air fluid levels. Gas and fecal material is seen in non-distended colon. No convincing evidence for pneumoperitoneum. No unusual calcifications. The lung bases are clear. The osseous structures are intact. IMPRESSION: 1. Overall nonobstructive bowel gas pattern. Moderate fecal stasis transverse colon and right hemico clarissa.
== END | disposition home or self-care (01) ==
LOC: RADXRYALE 11:56
PROVIDERS: ATTEND Physician Assistant Medical
DX: K56.41 Fecal impaction (principal); R10.84 Generalized abdominal pain
CPT/HCPCS: 74019